=== PATIENT | female | born 2000 | race Caucasian/White ===

== ENCOUNTER 2023-01-05 01:12 | Emergency (ER) | payer BC, SELFPAY ==
[2023-01-05 01:12] VITALS: BP 130/90; PULSE 126; RESP 23; TEMP 37; O2SAT 99; BMI 25.4
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
[2023-01-05 01:33] LABS: Basophils % 0.2 % (0.1-2.0); Eosinophils # 0.3 K/mm3 (0.0-0.4); Hematocrit 37.9 % (37.0-47.0); Hemoglobin 12.6 g/dL (12.2-16.2); Lymphocytes # 3.6 K/mm3 (0.7-4.5); Mean Corpuscular HGB Conc 33.1 g/dL (31.8-35.4); Mean Corpuscular Hemoglobin 27.9 pg (27.0-31.2); Mean Corpuscular Volume 84.1 fl (81-99); Mean Platelet Volume 8.2 fl (7.4-10.4); Monocytes # 0.6 K/mm3 (0.1-1.0); Neutrophils # 7.9 K/mm3 (1.8-7.8); Neutrophils % 63.7 % (37.0-80.0); Platelet Count 268 K/mm3 (142-424); Red Blood Count 4.51 M/mm3 (4.20-5.40); Red Cell Distribution Width 13.2 % (11.5-17.5); White Blood Count 12.3 K/mm3 (4.8-10.8)
[2023-01-05 01:34] VITALS: BP 130/90; PULSE 126; RESP 23
[2023-01-05 01:39] LABS: Alanine Aminotransferase 22 U/L (12-78); Alkaline Phosphatase 83 U/L (38-126); Anion Gap 13.9 mEq/L (5-15); Aspartate Amino Transferase 38 U/L (14-36); Bilirubin,Indirect 0.3 mg/dL (0.0-0.9); Bilirubin,Total 0.3 mg/dl (0.2-1.3); Bilirubin,Unconjugated 0.4 mg/dL (0.0-1.1); Blood Urea Nitrogen 13 mg/dl (7-17); Calcium 8.6 mg/dl (8.4-10.2); Carbon Dioxide 24 mmol/L (22.0-30.0); Chloride 104 mmol/L (98-107); Creatinine Clearance Estimated 107 mL/min (50-200); Estimated Glomerular Filt Rate 90 ml/min (>60); GFR (African American) 109 ML/MIN (>60); Glucose 120 mg/dl (74-100); Sodium 139 mmol/L (136-145)
[2023-01-05 01:40] LABS: HCG Qualitative, Serum Negative (Negative); Potassium 2.9 mmoL/L (3.5-5.1)
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
[2023-01-05 01:42] VITALS: BMI 25.4
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
--- NOTE | 2023-01-05 02:16 | PC.NURSE ---
Dr. Vela notified of critical postassium of 2.9 at 0145
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
--- NOTE | 2023-01-05 02:38 | PC.NURSE ---
[facility] contacted to notify pt had been accepted and 20 min eta
[2023-01-05 03:00] VITALS: BP 133/79; PULSE 111; RESP 17; TEMP 37.1; O2SAT 99
--- NOTE | 2023-01-05 03:04 | PC.NURSE ---
[facility] arrived, giving pt report to Flight RN
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
--- NOTE | 2023-01-05 03:20 | PC.NURSE ---
Gave report to Naomi LOWERY ED Charge- Farhat HOOD
== END 2023-01-05 03:15 | disposition short-term general hospital (02) ==
PROVIDERS: Emergency Provider Emergency Medicine
DX: S12.9XXA Fracture of neck, unspecified, initial encounter (principal); M54.6 Pain in thoracic spine; M54.50 Low back pain, unspecified; V86.65XA Passenger of 3- or 4- wheeled all-terrain vehicle (ATV) injured in nontraffic accident, initial encounter
CPT/HCPCS: 70450; 71045; 71275; 72125; 72128; 72131; 72170; 73000; 74177; 80048; 80076; 84703; 85025; 96361; 96374; 96375; 99291; J0131; Q9967